=== PATIENT | male | born 1985 | race Caucasian/White ===

== ENCOUNTER → 2017-02-01 | Outpatient (REF) | payer MEDICAID ==
[~2017-02-01] MED LIST: /ALEN70TA; /ALEN70TA OR; /BACL20TA; /BACL20TA OR; ACET50TA PO; ACET650S RE; ACET65TA AD; ACET65TA OR; AMBI5TAB; AMOX250C3 OR; BISA10SU2; BISA10SU2 RE; BISA5TA PR; CETI10TA PO; CIPR750T2 OR; CLON0.5T OR; DETR4CAP; DETR4CAP OR; E; FOSA70TA PO; GLYCERIN ADULT SUPP PR; KLON0.5T; KLON0.5T OR; LACT10SO8; LACT10SO8 OR; LEVO750T PO; LIDOCAINE JELLY TOP; MAALSUS OR; MINOCYCLINE; MINOCYCLINE PO; MIRALEX; MIRALEX PO; NEUR100C OR; OMEP20TA7 OR; PARAFON FORTE PO; PRIL20CA; PRIL20CA OR; SODI-399; TETR250C; TETR250C OR; ZANA4CAP OR; [UNRECOGNIZED DRUG - OTHER]; [UNRECOGNIZED DRUG - OTHER]; [UNRECOGNIZED DRUG - OTHER] TOP; [UNRECOGNIZED DRUG - OTHER] TOP; bacid PO; mycostatin powder
== END ==
LOC: M SMT 16:53
PROVIDERS: ATTEND Nurse Practitioner Women's Health
DX: N31.9 Neuromuscular dysfunction of bladder, unspecified (principal)

== ENCOUNTER 2017-02-17 12:28 | Emergency (ER) | payer MEDICAID ==
[~2017-02-17] VITALS: Ht 182.9 cm; Wt 86.2 kg
[2017-02-17] MEDS ORDERED: BENA25CA4 PO (12:43)
[2017-02-17] MEDS ORDERED: ROPI1TAB PO (12:43)
[2017-02-17 13:24] LABS: ANION GAP 8 MEQ/L (8-16); BLOOD UREA NITROGEN 10 MG/DL (7-18); CARBON DIOXIDE LEVEL 26 MEQ/L (21-32); CHLORIDE LEVEL 107 MEQ/L (98-107); CREATININE FOR GFR 0.68 MG/DL (0.70-1.30); GLOMERULAR FILTRATION RATE > 60.0 (>60); GLUCOSE, FASTING 95 MG/DL (70-105); POTASSIUM SERUM 4.2 MEQ/L (3.5-5.1); SODIUM LEVEL 141 MEQ/L (136-145)
[2017-02-17 13:25] LABS: BASO % 0.4 % (0.0-1.0); EOS # 0.3 K/mm3 (0.0-0.50); EOS % 4.6 % (0.0-3.0); LARGE UNSTAINED CELL # 0.1 K/mm3 (0.0-0.4); LARGE UNSTAINED CELL % 1.4 % (0.0-4.0); LYMPH # 1.6 K/mm3 (1.5-4.5); MEAN CORPUSCULAR HGB CONC 35.2 g/dl (32.0-36.5); MEAN CORPUSCULAR VOLUME 88.2 fl (80.0-96.0); MONO # 0.3 K/mm3 (0.0-0.8); MONO % 4.8 % (0.0-5.0); NEUTROPHILS # 4.7 K/mm3 (1.8-7.7); NEUTROPHILS % 66.9 % (36.0-66.0); PLATELET COUNT, AUTOMATED 202 k/mm3 (150-450); RED CELL DISTRIBUTION WIDTH 12.7 % (11.5-14.5); WHITE BLOOD COUNT 7.1 K/mm3 (4.0-10.0)
[2017-02-17 15:00] VITALS: BP 118/61
--- NOTE | 2017-02-19 06:30 | ECGEPIP ---
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 RBBB Electronically Signed On 02-19-2017 6:30:30 EDT by Dave Jama
== END 2017-02-17 15:20 | disposition home or self-care (01) ==
LOC: EDBD 12:28 → M ED 13:20
DX: R55 Syncope and collapse (principal); T45.0X5A Adverse effect of antiallergic and antiemetic drugs, initial encounter; G82.20 Paraplegia, unspecified; Z98.1 Arthrodesis status; Z87.828 Personal history of other (healed) physical injury and trauma; Z88.5 Allergy status to narcotic agent; Z88.1 Allergy status to other antibiotic agents; Z88.2 Allergy status to sulfonamides; Z91.040 Latex allergy status; Z79.899 Other long term (current) drug therapy

== ENCOUNTER → 2017-09-25 | Outpatient (REF) | payer MEDICAID | LOC: M SMT 13:17 | DX: R82.90 Unspecified abnormal findings in urine (principal) ==

== ENCOUNTER → 2017-10-29 | Outpatient (REF) | payer MEDICAID | LOC: M SMT 17:45 | DX: N31.9 Neuromuscular dysfunction of bladder, unspecified (principal) ==

== ENCOUNTER → 2017-12-04 | Outpatient (REF) | payer MEDICAID | LOC: M SMT 16:57 | DX: N31.9 Neuromuscular dysfunction of bladder, unspecified (principal) | CPT/HCPCS: 87186 ==

== ENCOUNTER → 2018-01-10 | Outpatient (CLI) | payer MEDICAID | LOC: M SMT 15:21 | DX: N31.9 Neuromuscular dysfunction of bladder, unspecified (principal); N39.0 Urinary tract infection, site not specified | CPT/HCPCS: 87186 ==

== ENCOUNTER → 2018-04-11 | Outpatient (REF) | payer MEDICAID | LOC: M SMT 17:05 | DX: N31.9 Neuromuscular dysfunction of bladder, unspecified (principal) ==

== ENCOUNTER → 2018-05-09 | Outpatient (CLI) | payer MEDICAID ==
[2018-05-09 13:37] LABS: ANION GAP 7 MEQ/L (8-16); BLOOD UREA NITROGEN 10 MG/DL (7-18); CALCIUM LEVEL 8.6 MG/DL (8.5-10.1); CARBON DIOXIDE LEVEL 29 MEQ/L (21-32); CHLORIDE LEVEL 109 MEQ/L (98-107); CREATININE FOR GFR 0.74 MG/DL (0.70-1.30); GLOMERULAR FILTRATION RATE > 60.0 (>60); GLUCOSE, FASTING 115 MG/DL (70-100); LDH LACTATE DEHYDROGENASE 115 U/L (87-241); POTASSIUM SERUM 4.1 MEQ/L (3.5-5.1); SODIUM LEVEL 145 MEQ/L (136-145)
[2018-05-09 13:41] LABS: BASO % 0.5 % (0.0-1.0); EOS # 0.3 10^3/uL (0.0-0.50); HEMATOCRIT 38.5 % (42.0-52.0); HEMOGLOBIN 13.1 g/dl (13.5-17.5); IMMATURE GRANULOCYTE % 0.2 % (0-3.0); LYMPH # 1.4 10^3/uL (1.5-4.5); LYMPH % 25.2 % (24.0-44.0); MEAN CORPUSCULAR HEMOGLOBIN 30.3 pg (27.0-33.0); MEAN CORPUSCULAR VOLUME 88.9 fl (80.0-96.0); MONO # 0.3 10^3/uL (0.0-0.8); MONO % 5.4 % (0.0-5.0); NEUTROPHILS # 3.6 10^3/uL (1.8-7.7); NEUTROPHILS % 63.7 % (36.0-66.0); PLATELET COUNT, AUTOMATED 227 10^3/uL (150-450); RED BLOOD COUNT 4.33 10^6/uL (4.30-6.10); RED CELL DISTRIBUTION WIDTH 12.2 % (11.5-14.5); WHITE BLOOD COUNT 5.6 10^3/uL (4.0-10.0)
== END ==
LOC: M SMT 10:04
DX: N39.0 Urinary tract infection, site not specified (principal)

== ENCOUNTER → 2018-05-09 | Outpatient (REF) | payer MEDICAID ==
[2018-05-09 13:59] LABS: APPEARANCE, URINE HAZY (CLEAR); BACTERIA, URINE AUTO 1+ (NEGATIVE); BILIRUBIN, URINE AUTO NEGATIVE (NEGATIVE); BLOOD, URINE BLOOD 1+ (NEGATIVE); COLOR, URINE YELLOW (YELLOW); GLUCOSE, URINE (UA) AUTO NEGATIVE (NEGATIVE); KETONE, URINE AUTO NEGATIVE (NEGATIVE); LEUKOCYTE ESTERASE, URINE AUTO 3+ (NEGATIVE); NITRITE, URINE AUTO POSITIVE (NEGATIVE); PROTEIN, URINE AUTO NEGATIVE (NEGATIVE); RBC, URINE AUTO 2 /HPF (0-3); SPECIFIC GRAVITY URINE AUTO 1.008 (1.002-1.035); SQUAMOUS EPITHELIAL CELL UR AU 0 /HPF (0-6); TRIPLE PHOSPHATE CRYSTALS SMALL; UROBILINOGEN, URINE AUTO 0.2 mg/dL (0.0-2.0); WBC, URINE AUTO 12 /HPF (0-3)
== END ==
LOC: M SMT 12:58
DX: N39.0 Urinary tract infection, site not specified (principal)

== ENCOUNTER → 2018-06-02 | Outpatient (CLI) | payer MEDICAID ==
[~2018-06-02] MED LIST changes: -/ALEN70TA; -/ALEN70TA OR; -/BACL20TA; -/BACL20TA OR; -ACET50TA PO; -ACET650S RE; -ACET65TA AD; -ACET65TA OR; -AMBI5TAB; -AMOX250C3 OR; -BISA10SU2; -BISA10SU2 RE; -BISA5TA PR; -CETI10TA PO; -CIPR750T2 OR; -CLON0.5T OR; -DETR4CAP; -DETR4CAP OR; -E; -FOSA70TA PO; -GLYCERIN ADULT SUPP PR; +ISOVUE-370 76% 100ML VIAL (Q9967) As Ordered; -KLON0.5T; -KLON0.5T OR; -LACT10SO8; -LACT10SO8 OR; -LEVO750T PO; -LIDOCAINE JELLY TOP; -MAALSUS OR; -MINOCYCLINE; -MINOCYCLINE PO; -MIRALEX; -MIRALEX PO; -NEUR100C OR; -OMEP20TA7 OR; -PARAFON FORTE PO; -PRIL20CA; -PRIL20CA OR; -SODI-399; -TETR250C; -TETR250C OR; -ZANA4CAP OR; -[UNRECOGNIZED DRUG - OTHER]; -[UNRECOGNIZED DRUG - OTHER]; -[UNRECOGNIZED DRUG - OTHER] TOP; -[UNRECOGNIZED DRUG - OTHER] TOP; -bacid PO; -mycostatin powder
== END ==
LOC: M RAD 15:35
DX: N39.0 Urinary tract infection, site not specified (principal)
CPT/HCPCS: Q9967

== ENCOUNTER → 2018-06-16 | Outpatient (REF) | payer MEDICAID | LOC: M SFHCPLAZ 12:02 | DX: N20.0 Calculus of kidney (principal) ==

== ENCOUNTER → 2019-04-22 | Outpatient (REF) | payer MEDICARE ==
[~2019-04-22] MED LIST changes: +/ALEN70TA; +/ALEN70TA OR; +ACET650S RE; +ACET65TA AD; +ACET65TA OR; +AMBI5TAB; +AMOX250C3 OR; +BACL1TAB9; +BACL1TAB9 OR; +BENA25CA4 PO; +BISA10SU2; +BISA10SU2 RE; +BISA5TA PR; +CETI10TA PO; +CIPR750T2 OR; +CLON0.5T OR; +DETR4CAP; +DETR4CAP OR; +E; +FOSA70TA PO; +GLYCERIN ADULT SUPP PR; -ISOVUE-370 76% 100ML VIAL (Q9967) As Ordered; +KLON0.5T; +KLON0.5T OR; +LACT10SO8; +LACT10SO8 OR; +LEVO750T PO; +LIDOCAINE JELLY TOP; +MAALSUS OR; +MAPA500T17 PO; +MINOCYCLINE; +MINOCYCLINE PO; +MIRALEX; +MIRALEX PO; +NEUR100C OR; +OMEP20TA7 OR; +PARAFON FORTE PO; +PRIL20CA; +PRIL20CA OR; +ROPI1TAB PO; +SODI-399; +TETR250C; +TETR250C OR; +ZANA4CAP OR; +[UNRECOGNIZED DRUG - OTHER]; +[UNRECOGNIZED DRUG - OTHER]; +[UNRECOGNIZED DRUG - OTHER] TOP; +[UNRECOGNIZED DRUG - OTHER] TOP; +bacid PO; +mycostatin powder
[2019-04-22 18:57] LABS: APPEARANCE, URINE CLOUDY (CLEAR); BACTERIA, URINE AUTO 3+ (NEGATIVE); BILIRUBIN, URINE AUTO NEGATIVE (NEGATIVE); BLOOD, URINE BLOOD 3+ (NEGATIVE); COLOR, URINE AMBER (YELLOW); GLUCOSE, URINE (UA) AUTO NEGATIVE (NEGATIVE); KETONE, URINE AUTO NEGATIVE (NEGATIVE); LEUKOCYTE ESTERASE, URINE AUTO 3+ (NEGATIVE); NITRITE, URINE AUTO POSITIVE (NEGATIVE); PROTEIN, URINE AUTO 1+ mg/dL (NEGATIVE); RBC, URINE AUTO TNTC /HPF (0-3); SPECIFIC GRAVITY URINE AUTO 1.021 (1.002-1.035); SQUAMOUS EPITHELIAL CELL UR AU 0 /HPF (0-6); UROBILINOGEN, URINE AUTO 0.2 mg/dL (0.0-2.0); WBC, URINE AUTO TNTC /HPF (0-3)
== END ==
LOC: M SMT 17:09
PROVIDERS: ATTEND Nurse Practitioner Family
DX: R31.9 Hematuria, unspecified (principal)

== ENCOUNTER → 2019-05-28 | Outpatient (REF) | payer MEDICARE ==
[~2019-05-28] MED LIST changes: +BACL1TAB9 PO; +BISA10SU27 PR; +CEPH500T PO; +CIPR-249 PO; +CLIN1LOT TOP; +CLON0.5T2 PO; +DETR4CAP PO; +DIPH25CA32 PO; +ERYTGEL TOP; +GABA-843 PO; +KLON0.5T PO; +LACT10SO3 PO; +LEVA1TAB2 PO; +MINO100C4 PO; +MIRA3350 PO; +NEUR300C PO
[2019-05-28 18:07] LABS: APPEARANCE, URINE CLEAR (CLEAR); BACTERIA, URINE AUTO NEGATIVE (NEGATIVE); BILIRUBIN, URINE AUTO NEGATIVE (NEGATIVE); BLOOD, URINE BLOOD NEGATIVE (NEGATIVE); COLOR, URINE STRAW (YELLOW); GLUCOSE, URINE (UA) AUTO NEGATIVE (NEGATIVE); KETONE, URINE AUTO NEGATIVE (NEGATIVE); LEUKOCYTE ESTERASE, URINE AUTO 1+ (NEGATIVE); MUCUS, URINE SMALL (NEGATIVE); NITRITE, URINE AUTO NEGATIVE (NEGATIVE); PROTEIN, URINE AUTO NEGATIVE (NEGATIVE); RBC, URINE AUTO 1 /HPF (0-3); SPECIFIC GRAVITY URINE AUTO 1.003 (1.002-1.035); SQUAMOUS EPITHELIAL CELL UR AU 0 /HPF (0-6); UROBILINOGEN, URINE AUTO 0.2 mg/dL (0.0-2.0); WBC, URINE AUTO 1 /HPF (0-3)
== END ==
LOC: M SMT 17:09
PROVIDERS: ATTEND Nurse Practitioner Family
DX: N39.0 Urinary tract infection, site not specified (principal)

== ENCOUNTER 2019-05-30 16:57 | Observation (INO) | payer MEDICARE ==
[~2019-05-30] VITALS: Ht 182.9 cm; Wt 82.4 kg
[~2019-05-30 16:57] MED LIST changes: -BACL1TAB9 PO; -BISA10SU27 PR; -CEPH500T PO; -CIPR-249 PO; -CLIN1LOT TOP; -CLON0.5T2 PO; -DETR4CAP PO; -DIPH25CA32 PO; -ERYTGEL TOP; -GABA-843 PO; -KLON0.5T PO; -LACT10SO3 PO; -LEVA1TAB2 PO; -MINO100C4 PO; -MIRA3350 PO; -NEUR300C PO
[2019-05-30] MEDS ORDERED: IBUPROFEN 600 MG TAB PO ONE (17:15)
[2019-05-30] MEDS ORDERED: NS 1,000 ML IV ONE ×2 (18:00→22:15)
[2019-05-30 19:05] LABS: BASO % 0.1 % (0.0-1.0); EOS # 0.1 10^3/uL (0.0-0.5); EOS % 0.6 % (0.0-3.0); HEMATOCRIT 38.8 % (42.0-52.0); HEMOGLOBIN 13.4 g/dl (13.5-17.5); LYMPH # 0.4 10^3/uL (1.5-5.0); LYMPH % 3.4 % (24.0-44.0); MEAN CORPUSCULAR HEMOGLOBIN 31.3 pg (27.0-33.0); MEAN CORPUSCULAR HGB CONC 34.5 g/dl (32.0-36.5); MEAN CORPUSCULAR VOLUME 90.7 fl (80.0-96.0); MONO # 0.2 10^3/uL (0.0-0.8); MONO % 2.3 % (0.0-5.0); NEUTROPHILS # 9.6 10^3/uL (1.5-8.5); NEUTROPHILS % 93.1 % (36.0-66.0); PLATELET COUNT, AUTOMATED 163 10^3/uL (150-450); RED BLOOD COUNT 4.28 10^6/uL (4.30-6.10); WHITE BLOOD COUNT 10.3 10^3/uL (4.0-10.0)
[2019-05-30] MEDS ORDERED: ACETAMINOPHEN 325 MG TAB PO ONE (19:15)
[2019-05-30 19:19] LABS: ALBUMIN 3.2 GM/DL (3.2-5.2); ALT/SGPT 27 U/L (12-78); BILIRUBIN,DIRECT 0.1 MG/DL (0.0-0.2); BILIRUBIN,TOTAL 0.6 MG/DL (0.2-1.0); BLOOD UREA NITROGEN 10 MG/DL (7-18); CALCIUM LEVEL 8.6 MG/DL (8.5-10.1); CARBON DIOXIDE LEVEL 25 MEQ/L (21-32); CHLORIDE LEVEL 106 MEQ/L (98-107); CREATININE FOR GFR 0.73 MG/DL (0.70-1.30); GLOMERULAR FILTRATION RATE > 60.0 (>60); GLUCOSE, FASTING 95 MG/DL (70-100); POTASSIUM SERUM 4.1 MEQ/L (3.5-5.1); SODIUM LEVEL 139 MEQ/L (136-145); TOTAL PROTEIN 6.4 GM/DL (6.4-8.2)
[2019-05-30] MEDS ORDERED: cefTAZidime 1 GM in D5W MINI-BAG PLUS 50 ML IV ONE (19:30)
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
[2019-05-30] MEDS ORDERED: IBUPROFEN 400 MG TAB PO PRN (20:45)
[2019-05-30] MEDS ORDERED: CLIN1LOT TOP (20:59)
[2019-05-30] MEDS ORDERED: MIRA3350 PO (20:59)
[2019-05-30] MEDS ORDERED: BISA10SU27 PR (20:59)
[2019-05-30] MEDS ORDERED: LACT10SO3 PO (20:59)
[2019-05-30] MEDS ORDERED: CLON0.5T8 PO (20:59)
[2019-05-30] MEDS ORDERED: ERYTGEL TOP (20:59)
[2019-05-30] MEDS ORDERED: CEPH500T PO (20:59)
[2019-05-30] MEDS ORDERED: BACL1TAB9 PO (20:59)
[2019-05-30] MEDS ORDERED: MINO100C4 PO (20:59)
[2019-05-30] MEDS ORDERED: GABA-843 PO (20:59)
[2019-05-30] MEDS: GABAPENTIN 300 MG CAP PO SCH (21:00)
[2019-05-30] MEDS: BACLOFEN 10 MG TAB PO SCH (21:00)
[2019-05-30] MEDS: BISACODYL 10 MG SUPP PR SCH (21:00)
[2019-05-30] MEDS: NS 1,000 ML IV SCH (21:35)
[2019-05-30 22:26] VITALS: BP 84/50
[2019-05-30] MEDS: ACETAMINOPHEN 650MG ER TAB (TYLENOL ARTHRITIS) PO SCH (22:36)
[2019-05-30] MEDS ORDERED: MIRALAX *UNIT DOSE* 17GM PACKET PO PRN (23:15)
[2019-05-30] MEDS ORDERED: LACTULOSE 20 GM/30 ML SYRUP UD PO PRN (23:15)
[2019-05-30 23:59] VITALS: BP 97/56
[2019-05-31] MEDS: rOPINIRole 1MG TAB PO SCH ×4 (00:14→20:35)
[2019-05-31] MEDS: clonazePAM 0.5 MG TAB PO SCH ×3 (00:15→20:35)
[2019-05-31] MEDS ORDERED: cefTAZidime 1 GM in D5W MINI-BAG PLUS 50 ML IV SCH (03:00)
[2019-05-31] MEDS: cefTAZidime 1 GM in D5W MINI-BAG PLUS 50 ML IV SCH ×3 (03:36→18:14)
[2019-05-31 04:00] VITALS: BP 107/65
[2019-05-31 08:00] VITALS: BP 93/67
[2019-05-31 08:02] LABS: HEMATOCRIT 36.5 % (42.0-52.0); HEMOGLOBIN 12.4 g/dl (13.5-17.5); MEAN CORPUSCULAR HEMOGLOBIN 30.6 pg (27.0-33.0); MEAN CORPUSCULAR VOLUME 90.1 fl (80.0-96.0); PLATELET COUNT, AUTOMATED 142 10^3/uL (150-450); RED BLOOD COUNT 4.05 10^6/uL (4.30-6.10); WHITE BLOOD COUNT 15.4 10^3/uL (4.0-10.0)
[2019-05-31 08:27] LABS: BLOOD UREA NITROGEN 7 MG/DL (7-18); CALCIUM LEVEL 8.1 MG/DL (8.5-10.1); CARBON DIOXIDE LEVEL 24 MEQ/L (21-32); CHLORIDE LEVEL 112 MEQ/L (98-107); CREATININE FOR GFR 0.58 MG/DL (0.70-1.30); GLOMERULAR FILTRATION RATE > 60.0 (>60); GLUCOSE, FASTING 93 MG/DL (70-100); POTASSIUM SERUM 3.5 MEQ/L (3.5-5.1); SODIUM LEVEL 145 MEQ/L (136-145)
[2019-05-31] MEDS ORDERED: ENOXAPARIN 40 MG/0.4 ML SYRINGE (J1650) SC SCH (09:00)
[2019-05-31] MEDS: ACETAMINOPHEN 650MG ER TAB (TYLENOL ARTHRITIS) PO SCH ×2 (09:20→20:35)
[2019-05-31] MEDS: GABAPENTIN 300 MG CAP PO SCH ×3 (09:21→22:06)
[2019-05-31] MEDS: BACLOFEN 10 MG TAB PO SCH ×4 (09:21→22:06)
[2019-05-31] MEDS ORDERED: SLF 3 ML SYR IV PRN (10:45)
[2019-05-31 12:00] VITALS: BP 117/66
[2019-05-31] MEDS: SLF 3 ML SYR IV SCH ×2 (14:03→22:06)
--- NOTE | 2019-05-31 15:51 | IPNPDOC ---
Text Note Date of Service The patient was seen on 05/31/19. NOTE Patient remains medically stable. Patient cannot distinguish whether he feels hot or cold. He does not exhibit diaphoresis. Patient is admitted with urinary traction infection and associated sepsis. The patient has quadriplegia. Objective: General: Is warm to touch, but is not clammy or diaphoretic. HENT: Neck is supple to passive motion. Oral mucosa is moist, no adenopathy. Cardiovascular: Regular rate and rhythm with a normal S1 and S2. Respiratory: Generally clear to auscultation. Abdomen: Soft, flat, nontender. Extremities: Patient does have some flexion contracture to his upper extremities, Lower extremities are extended. Pedal pulses are palpable. Neuro: Patient at times exhibit spasm in response to tactile stimulation Sepsis: Patient has a MAXIMUM TEMPERATURE of 99. He has not exhibited tachycardia. He has had mild hypotension at 93/67. Lactic acid was mildly elevated at 2.2, but has normalized to 0.7. Patient remains on empiric antibiotics in the form of ceftazidime. Source is suspected to be urine. Patient has chronic indwelling Leija for neurogenic bladder. Blood and urine culture results are pending. Quadriplegia. Patient remains on medications as needed for spasm and pain. VS,Fishbone, I+O VS, Fishbone, I+O Laboratory Tests 05/30/19 18:29 Red Blood Count 4.28 L, Mean Corpuscular Volume 90.7, Mean Corpuscular Hemoglobin 31.3, Mean Corpuscular Hemoglobin Concent 34.5, Red Cell Distribution Width 12.4, Neutrophils (%) (Auto) 93.1 H, Lymphocytes (%) (Auto) 3.4 L, Monocytes (%) (Auto) 2.3, Eosinophils (%) (Auto) 0.6, Basophils (%) (Auto) 0.1, Neutrophils # (Auto) 9.6 H, Lymphocytes # (Auto) 0.4 L, Monocytes # (Auto) 0.2, Eosinophils # (Auto) 0.1, Basophils # (Auto) 0.0 05/31/19 07:37 Red Blood Count 4.05 L, Mean Corpuscular Volume 90.1, Mean Corpuscular Hemoglobin 30.6, Mean Corpuscular Hemoglobin Concent 34.0, Red Cell Distribution Width 12.4, Calcium Level 8.1 L Vital Signs Date Time Temp Pulse Resp B/P (MAP) Pulse Ox O2 Delivery O2 Flow Rate FiO2 05/31/19 12:00 98.6 84 20 117/66 (83) 99 05/30/19 21:37 Room Air I&O- Last 24 Hours up to 6 AM 05/31/19 06:00 Intake Total 2660 ml Output Total 2200 ml Balance 460 ml LUIGI RODRIGUEZ MD May 31, 2019 15:51
[2019-05-31 16:00] VITALS: BP 108/62
[2019-05-31] MEDS: NS 1,000 ML IV SCH (16:12)
[2019-05-31 20:00] VITALS: BP 102/64
[2019-05-31] MEDS: BISACODYL 10 MG SUPP PR SCH (20:25)
[2019-06-01] VITALS: BP 92/50
[2019-06-01] MEDS: cefTAZidime 1 GM in D5W MINI-BAG PLUS 50 ML IV SCH ×2 (03:54→10:51)
[2019-06-01] MEDS: BACLOFEN 10 MG TAB PO SCH ×2 (03:55→09:12)
[2019-06-01] MEDS: GABAPENTIN 300 MG CAP PO SCH ×2 (03:55→09:12)
[2019-06-01 04:00] VITALS: BP 110/86
[2019-06-01] MEDS: SLF 3 ML SYR IV SCH (05:29)
[2019-06-01] MEDS: NS 1,000 ML IV SCH (05:32)
[2019-06-01 05:39] LABS: BASO % 0.2 % (0.0-1.0); EOS # 0.3 10^3/uL (0.0-0.5); EOS % 3.2 % (0.0-3.0); HEMATOCRIT 34.9 % (42.0-52.0); HEMOGLOBIN 11.8 g/dl (13.5-17.5); LYMPH # 1.3 10^3/uL (1.5-5.0); LYMPH % 15.5 % (24.0-44.0); MEAN CORPUSCULAR HGB CONC 33.8 g/dl (32.0-36.5); MEAN CORPUSCULAR VOLUME 88.8 fl (80.0-96.0); MONO # 0.5 10^3/uL (0.0-0.8); MONO % 5.4 % (0.0-5.0); NEUTROPHILS # 6.4 10^3/uL (1.5-8.5); NEUTROPHILS % 75.2 % (36.0-66.0); PLATELET COUNT, AUTOMATED 157 10^3/uL (150-450); RED BLOOD COUNT 3.93 10^6/uL (4.30-6.10); WHITE BLOOD COUNT 8.5 10^3/uL (4.0-10.0)
[2019-06-01 05:58] LABS: BLOOD UREA NITROGEN 6 MG/DL (7-18); CALCIUM LEVEL 8.6 MG/DL (8.5-10.1); CARBON DIOXIDE LEVEL 22 MEQ/L (21-32); CHLORIDE LEVEL 113 MEQ/L (98-107); CREATININE FOR GFR 0.56 MG/DL (0.70-1.30); GLOMERULAR FILTRATION RATE > 60.0 (>60); GLUCOSE, FASTING 88 MG/DL (70-100); POTASSIUM SERUM 3.3 MEQ/L (3.5-5.1); SODIUM LEVEL 144 MEQ/L (136-145)
[2019-06-01 08:00] VITALS: BP 124/75
[2019-06-01] MEDS ORDERED: POTASSIUM CHLORIDE 10 MEQ SR TABLET PO ONE (09:00)
[2019-06-01] MEDS: ACETAMINOPHEN 650MG ER TAB (TYLENOL ARTHRITIS) PO SCH (09:11)
[2019-06-01] MEDS: clonazePAM 0.5 MG TAB PO SCH (09:11)
[2019-06-01] MEDS: rOPINIRole 1MG TAB PO SCH (09:11)
[2019-06-01] MEDS ORDERED: LevoFLOXacin 500 MG TABLET PO SCH (11:30)
[2019-06-01 12:00] VITALS: BP 122/73
[2019-06-01] MEDS ORDERED: LEVA1TAB2 PO (12:05)
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
== END 2019-06-01 13:47 | disposition home or self-care (01) ==
LOC: M ED 16:57 → EDBD 16:57 → M ED INP 16:58 → M PCU 21:56
PROVIDERS: ADMIT Internal Medicine; ATTEND Internal Medicine
DX: N39.0 Urinary tract infection, site not specified (principal); A41.89 Other specified sepsis; B96.5 Pseudomonas (aeruginosa) (mallei) (pseudomallei) as the cause of diseases classified elsewhere; G82.50 Quadriplegia, unspecified; N31.9 Neuromuscular dysfunction of bladder, unspecified; R33.9 Retention of urine, unspecified; Z95.828 Presence of other vascular implants and grafts; Z79.899 Other long term (current) drug therapy; Z88.2 Allergy status to sulfonamides; Z88.5 Allergy status to narcotic agent
CPT/HCPCS: 36415; 80048; 80076; 81001; 83605; 85025; 85027; 87040; 87088; 87186; 96361; 96365; 96366; 96376; 99284; G0378; J0713

== ENCOUNTER → 2019-07-27 | Outpatient (REF) | payer MEDICARE, MEDICAID ==
[~2019-07-27] MED LIST changes: +BACL1TAB9 PO; +BISA10SU27 PR; +CEPH500T PO; +CIPR-249 PO; +CLIN1LOT TOP; +CLON0.5T8 PO; +DETR4CAP PO; +DIPH25CA32 PO; +ERYTGEL TOP; +GABA-843 PO; +KLON0.5T PO; +LACT10SO3 PO; +LEVA1TAB2 PO; +MINO100C4 PO; +MIRA3350 PO; +NEUR300C PO
== END ==
LOC: M SMT 17:42
PROVIDERS: ATTEND Urology
DX: Z01.818 Encounter for other preprocedural examination (principal); R33.9 Retention of urine, unspecified; N31.9 Neuromuscular dysfunction of bladder, unspecified; N39.0 Urinary tract infection, site not specified

== ENCOUNTER → 2019-07-30 | Outpatient (REF) | payer MEDICARE, MEDICAID ==
[2019-07-30 12:36] LABS: PROTHROMBIN TIME 12.9 SECONDS (11.8-14.0)
[2019-07-30 12:37] LABS: PARTIAL THROMBOPLASTIN TIME 29.5 SECONDS (25.0-38.4)
== END ==
LOC: M LAB REF 12:14
PROVIDERS: ATTEND Internal Medicine
DX: Z01.810 Encounter for preprocedural cardiovascular examination (principal); Z79.01 Long term (current) use of anticoagulants

== ENCOUNTER 2019-08-03 12:59 | Day surgery (SDC) | payer MEDICARE, MEDICAID ==
[~2019-08-03] VITALS: Ht 180.3 cm; Wt 79.8 kg
[~2019-08-03 12:59] MED LIST changes: -CIPR-249 PO; +LIDOCAINE 1% MDV 20ML VIAL SQ PRN; +LR 1,000 ML IV ONE; +PIPERACILLIN/TAZOBACTAM SOD 3.375 GM in D5W MINI-BAG PLUS 50 ML IV ONE
[2019-08-03] MEDS ORDERED: CIPR-249 PO (13:35)
[2019-08-03] MEDS ORDERED: dexameTHASONE 4 MG/ML 1ML VIAL (J1100) As Ordered ONE (15:31)
[2019-08-03] MEDS ORDERED: ONDANSETRON 4MG/2ML VIAL (J2405) As Ordered ONE (15:31)
[2019-08-03] MEDS ORDERED: PROPOFOL 200 MG/20 ML VIAL As Ordered ONE (15:31)
[2019-08-03] MEDS ORDERED: ROCURONIUM BROMIDE 50 MG/5 ML VIAL As Ordered ONE (15:31)
[2019-08-03] MEDS ORDERED: LIDOCAINE 2% INJ 100 MG/5 ML SDV (FOR ANES.) As Ordered ONE (15:31)
[2019-08-03] MEDS ORDERED: MIDAZOLAM INJ 2 MG/2 ML VIAL (J2250) As Ordered ONE (16:26)
[2019-08-03] MEDS ORDERED: fentaNYL 250 MCG/5 ML INJECTION (J3010) As Ordered ONE (16:26)
[2019-08-03] MEDS ORDERED: LIDOCAINE 1% SDV INJ 30 ML VIAL As Ordered ONE (16:31)
[2019-08-03] MEDS ORDERED: BUPIVACAINE HCL 0.25% 30 ML VIAL As Ordered ONE (16:31)
[2019-08-03] MEDS ORDERED: ePHEDrine SULFATE 25 MG/5 ML(5MG/ML) SYRINGE As Ordered ONE (17:16)
[2019-08-03] MEDS ORDERED: GLYCOPYRROLATE INJ 0.2 MG/ML 2 ML VIAL As Ordered ONE (17:16)
[2019-08-03] MEDS ORDERED: SUGAMMADEX SODIUM 500 MG/5 ML VIAL (BRIDION) As Ordered ONE (17:25)
[2019-08-03] MEDS ORDERED: fentaNYL 100 MCG/2 ML INJECTION (J3010) As Ordered ONE (18:38)
[2019-08-03] MEDS: fentaNYL 100 MCG/2 ML INJECTION (J3010) IV PRN ×4 (18:40→18:57)
[2019-08-03] MEDS ORDERED: LR 1,000 ML IV SCH (19:00)
[2019-08-03] MEDS ORDERED: ONDANSETRON 4MG/2ML VIAL (J2405) IV PRN (19:00)
[2019-08-03] MEDS ORDERED: PERCOCET 5MG/325MG TAB PO PRN ×2 (19:00)
--- NOTE | 2019-08-03 19:03 | ROOPDOC ---
[facility] Report Of Operation Report of Operation DATE OF PROCEDURE: 08/03/19 PREPROCEDURE DIAGNOSIS: Urinary Retention. POSTPROCEDURE DIAGNOSIS: Urinary Retention. PROCEDURE: Open cystotomy with suprapubic catheter placement. SURGEON: Helder Arizmendi MD BLOOD BANK LABORATORY TECHNOLOGIST: None. ANESTHESIA: General. OPERATIVE INDICATIONS: This is a 34-year-old male with urinary retention managed with a chronic indwelling catheter. He was brought to the operating room today for the above procedure. DESCRIPTION OF PROCEDURE: The patient was brought to the operating room and spinal anesthesia was administered. Prophylactic antibiotics were infused. He was placed in the supine position and prepped and draped in the usual sterile fashion. At this point, an 18Fr Leija catheter was inserted in the urethra and advanced into the bladder. The balloon was filled with 10mL of sterile water and the catheter was clamped off. At this point, an approximately 5-6 cm suprapubic incision was made. We then dissected down through the subcutaneous tissues. The rectus fascia was then opened using electrocautery and then the bellies of the rectus muscle were bluntly spread. At this point, the bladder was then filled with normal saline using the urethral catheter. At this point, we dissected down to the bladder. The bladder was then palpated and then a syringe was utilized to aspirate what appeared to be the bladder. And at this point, clear fluid did aspirate into the syringe. This confirmed we were indeed staring at the bladder. I then used a #3-[address] a pursestring stitch through the dome of the bladder. At this point, a cystotomy was then made in the middle of the pursestring stitch and then clear fluid drained out. I then inserted a #20-Vietnamese catheter into the cystostomy and the balloon was filled with 7 mL of sterile water. The pursestring stitch was then tied down around the #20-Vietnamese catheter. Once this was done, I then irrigated the pelvis around the bladder several times and then suctioned out the fluid. We then closed the rectus fascia with interrupted #1 non-looped PDS sutures in a [id number] fashion. Once the fascia was closed, the subcutaneous tissues were reapproximated using interrupted #3-0 Vicryl suture. The skin was then closed around the suprapubic catheter using a running #4-0 Monocryl subcuticular suture. The suprapubic catheter was then further secured to the skin with a #2-0 Prolene suture. At this point, Dermabond and dressings were applied, and this marked the conclusion of the procedure. The suprapubic catheter was connected to gravity drainage. The patient was then awakened from anesthesia and transported to the recovery room in stable condition. Estimated blood loss: 10 mL. Complications: None. Specimens: None. PLAN: The patient will follow up in clinic in 6 weeks for his first suprapubic catheter change. HELDER ARIZMENDI MD Aug 03, 2019 19:03
[2019-08-03 20:45] VITALS: BP 122/70
== END 2019-08-03 20:55 | disposition home or self-care (01) ==
LOC: M SDC 12:59
PROVIDERS: ATTEND Urology
DX: R33.9 Retention of urine, unspecified (principal); N31.9 Neuromuscular dysfunction of bladder, unspecified; N39.0 Urinary tract infection, site not specified; G90.4 Autonomic dysreflexia; G82.50 Quadriplegia, unspecified; I10 Essential (primary) hypertension; Z79.899 Other long term (current) drug therapy; Z88.1 Allergy status to other antibiotic agents; Z91.040 Latex allergy status; Z88.2 Allergy status to sulfonamides; Z88.0 Allergy status to penicillin; Z88.5 Allergy status to narcotic agent
CPT/HCPCS: 51040; J1100; J2250; J2405; J2543; J3010

== ENCOUNTER → 2020-10-13 | Outpatient (REF) | payer MEDICARE, MEDICAID ==
[~2020-10-13] MED LIST changes: +CIPR-249 PO; +CLON0.5T2 PO; -CLON0.5T8 PO; +GABA-282 PO; -GABA-843 PO; -LIDOCAINE 1% MDV 20ML VIAL SQ PRN; -LR 1,000 ML IV ONE; -PIPERACILLIN/TAZOBACTAM SOD 3.375 GM in D5W MINI-BAG PLUS 50 ML IV ONE; -ROPI1TAB PO; +ROPI1TAB3 PO
[2020-10-13 17:05] LABS: APPEARANCE, URINE HAZY (CLEAR); BACTERIA, URINE AUTO 1+ (NEGATIVE); BILIRUBIN, URINE AUTO NEGATIVE (NEGATIVE); BLOOD, URINE BLOOD 3+ (NEGATIVE); COLOR, URINE YELLOW (YELLOW); GLUCOSE, URINE (UA) AUTO NEGATIVE (NEGATIVE); KETONE, URINE AUTO NEGATIVE (NEGATIVE); LEUKOCYTE ESTERASE, URINE AUTO 3+ (NEGATIVE); NITRITE, URINE AUTO NEGATIVE (NEGATIVE); PROTEIN, URINE AUTO 1+ mg/dL (NEGATIVE); RBC, URINE AUTO 3 /HPF (0-3); SPECIFIC GRAVITY URINE AUTO 1.002 (1.002-1.035); SQUAMOUS EPITHELIAL CELL UR AU 0 /HPF (0-6); UROBILINOGEN, URINE AUTO 0.2 mg/dL (0.0-2.0); WBC, URINE AUTO 21 /HPF (0-3)
== END ==
LOC: M SMT 13:17
PROVIDERS: ATTEND Nurse Practitioner Women's Health
DX: N39.0 Urinary tract infection, site not specified (principal)

== ENCOUNTER → 2020-12-29 | Outpatient (REF) | payer MEDICARE, MEDICAID ==
[2020-12-29 17:49] LABS: APPEARANCE, URINE CLEAR (CLEAR); BACTERIA, URINE AUTO NEGATIVE (NEGATIVE); BILIRUBIN, URINE AUTO NEGATIVE (NEGATIVE); BLOOD, URINE BLOOD NEGATIVE (NEGATIVE); COLOR, URINE COLORLESS (YELLOW); GLUCOSE, URINE (UA) AUTO NEGATIVE (NEGATIVE); KETONE, URINE AUTO NEGATIVE (NEGATIVE); LEUKOCYTE ESTERASE, URINE AUTO TRACE (NEGATIVE); NITRITE, URINE AUTO NEGATIVE (NEGATIVE); PROTEIN, URINE AUTO NEGATIVE (NEGATIVE); RBC, URINE AUTO 0 /HPF (0-3); SPECIFIC GRAVITY URINE AUTO 1.001 (1.002-1.035); SQUAMOUS EPITHELIAL CELL UR AU 0 /HPF (0-6); UROBILINOGEN, URINE AUTO 0.2 mg/dL (0.0-2.0); WBC, URINE AUTO 1 /HPF (0-3)
== END ==
LOC: M SMT 17:08
PROVIDERS: ATTEND Urology
DX: N31.9 Neuromuscular dysfunction of bladder, unspecified (principal)

== ENCOUNTER → 2021-07-12 | Outpatient (REF) | payer MEDICARE, MEDICAID ==
[2021-07-12 18:11] LABS: APPEARANCE, URINE HAZY (CLEAR); BACTERIA, URINE AUTO 1+ (NEGATIVE); BILIRUBIN, URINE AUTO NEGATIVE (NEGATIVE); BLOOD, URINE BLOOD 1+ (NEGATIVE); COLOR, URINE STRAW (YELLOW); GLUCOSE, URINE (UA) AUTO NEGATIVE (NEGATIVE); KETONE, URINE AUTO NEGATIVE (NEGATIVE); LEUKOCYTE ESTERASE, URINE AUTO 3+ (NEGATIVE); MUCUS, URINE SMALL (NEGATIVE); NITRITE, URINE AUTO NEGATIVE (NEGATIVE); PROTEIN, URINE AUTO NEGATIVE (NEGATIVE); RBC, URINE AUTO 3 /HPF (0-3); SPECIFIC GRAVITY URINE AUTO 1.002 (1.002-1.035); SQUAMOUS EPITHELIAL CELL UR AU 0 /HPF (0-6); UROBILINOGEN, URINE AUTO 0.2 mg/dL (0.0-2.0); WBC, URINE AUTO 63 /HPF (0-3)
== END ==
LOC: M SMT 16:45
DX: N39.0 Urinary tract infection, site not specified (principal)

== ENCOUNTER → 2022-11-19 | Outpatient (REF) | payer MEDICARE, MEDICAID ==
[~2022-11-19] MED LIST changes: +DIPH-435 PO; -DIPH25CA32 PO
[2022-11-20 10:57] LABS: PERCENT SATURATION 15.6 % (19.7-50.0)
[2022-11-20 11:04] LABS: FERRITIN 90.9 NG/ML (10.5-307.3)
== END ==
LOC: M LAB REF 10:13
PROVIDERS: ATTEND Internal Medicine
DX: G60.9 Hereditary and idiopathic neuropathy, unspecified (principal)

== ENCOUNTER → 2022-11-23 | Outpatient (REF) | payer MEDICARE, MEDICAID ==
[2022-11-23 17:02] LABS: APPEARANCE, URINE CLOUDY (CLEAR); BACTERIA, URINE AUTO NEGATIVE (NEGATIVE); BILIRUBIN, URINE AUTO NEGATIVE (NEGATIVE); BLOOD, URINE BLOOD 3+ (NEGATIVE); COLOR, URINE AMBER (YELLOW); GLUCOSE, URINE (UA) AUTO NEGATIVE (NEGATIVE); KETONE, URINE AUTO TRACE mg/dL (NEGATIVE); LEUKOCYTE ESTERASE, URINE AUTO 3+ (NEGATIVE); NITRITE, URINE AUTO NEGATIVE (NEGATIVE); PROTEIN, URINE AUTO 2+ mg/dL (NEGATIVE); RBC, URINE AUTO 149 /HPF (0-3); SPECIFIC GRAVITY URINE AUTO 1.024 (1.002-1.035); SQUAMOUS EPITHELIAL CELL UR AU 0 /HPF (0-6); UROBILINOGEN, URINE AUTO 0.2 mg/dL (0.0-2.0); WBC, URINE AUTO TNTC /HPF (0-3)
== END ==
LOC: M LAB REF 16:27
PROVIDERS: ATTEND Internal Medicine
DX: R33.9 Retention of urine, unspecified (principal)

== ENCOUNTER 2024-02-21 06:59 | Inpatient (IN) | payer MEDICARE, MEDICAID ==
[~2024-02-21] VITALS: Ht 182.9 cm; Wt 89.2 kg
[~2024-02-21 06:59] MED LIST changes: +ERYT1GEL5 TOP; -ERYTGEL TOP; -KLON0.5T PO; +KLON0.5T8 PO; -ROPI1TAB3 PO; +ROPI1TAB73 PO
[2024-02-21] MEDS ORDERED: OXYB15TA14 PO (07:09)
[2024-02-21 11:40] VITALS: BP 150/89
[2024-02-21] MEDS: BACLOFEN 10 MG TAB PO ONE (11:44)
[2024-02-21] MEDS: oxyBUTYnin *DITROPAN XL* 5 MG TABCR PO ONE (11:45)
[2024-02-21] MEDS: NS 1,000 ML IV ONE (11:45)
[2024-02-21] MEDS: GABAPENTIN 300 MG CAP PO ONE (11:45)
[2024-02-21] MEDS: clonazePAM 0.5 MG TAB PO ONE (11:45)
[2024-02-21] MEDS ORDERED: MORPHINE 2 MG/ML 1ML VIAL IV PRN ×2 (11:55)
[2024-02-21] MEDS ORDERED: ACETAMINOPHEN TAB 650MG DOSE (2X325MG) PO PRN (11:55)
[2024-02-21 12:16] LABS: BASO % 0.2 % (0.0-1.0); EOS # 0.2 10^3/uL (0.0-0.5); EOS % 2.1 % (0.0-3.0); HEMATOCRIT 43.4 % (42.0-52.0); HEMOGLOBIN 14.5 g/dl (13.5-17.5); LYMPH % 9.5 % (24.0-44.0); MEAN CORPUSCULAR HEMOGLOBIN 30.4 pg (27.0-33.0); MEAN CORPUSCULAR HGB CONC 33.4 g/dl (32.0-36.5); MONO # 0.4 10^3/uL (0.0-0.8); NEUTROPHILS # 8.9 10^3/uL (1.5-8.5); NEUTROPHILS % 83.8 % (36.0-66.0); PLATELET COUNT, AUTOMATED 184 10^3/uL (150-450); RED BLOOD COUNT 4.77 10^6/uL (4.30-6.10); WHITE BLOOD COUNT 10.6 10^3/uL (4.0-10.0)
[2024-02-21 12:28] LABS: INR 1.09; PROTHROMBIN TIME 13.7 SECONDS (12.5-14.5)
[2024-02-21] MEDS: rOPINIRole 1MG TAB PO ONE (12:31)
[2024-02-21 12:42] LABS: BLOOD UREA NITROGEN 18 MG/DL (9-23); CARBON DIOXIDE LEVEL 28 MMOL/L (20-31); CHLORIDE LEVEL 108 MMOL/L (98-107); CREATININE FOR GFR 0.55 MG/DL (0.70-1.30); GLOMERULAR FILTRATION RATE > 60.0 (>60); GLUCOSE, FASTING 99 MG/DL (60-100); POTASSIUM SERUM 4.6 MMOL/L (3.5-5.1); SODIUM LEVEL 141 MMOL/L (136-145)
[2024-02-21 12:44] VITALS: O2SAT 98
[2024-02-21 12:50] VITALS: TEMP 97.7
[2024-02-21] MEDS ORDERED: SILD25TA2 PO (13:14)
[2024-02-21] MEDS ORDERED: HOME MED LIST COMPLETE! XX SCH (13:15)
[2024-02-21] MEDS ORDERED: ASPI-655 PO (14:26)
[2024-02-22] MEDS ORDERED: ENOXAPARIN 40MG/0.4ML SYRINGE (J1650 PER 10MG) SC SCH (09:00)
== END 2024-02-21 15:08 | disposition left against medical advice (07) | DRG 535 ==
LOC: EDBD 06:59 → M ED 06:59 → M ED INP 11:54
PROVIDERS: ADMIT Internal Medicine; ATTEND Internal Medicine
DX: S72.012A Unspecified intracapsular fracture of left femur, initial encounter for closed fracture (principal); G82.50 Quadriplegia, unspecified; N31.9 Neuromuscular dysfunction of bladder, unspecified; Z87.440 Personal history of urinary (tract) infections; R33.9 Retention of urine, unspecified; F41.9 Anxiety disorder, unspecified; G89.29 Other chronic pain; R00.1 Bradycardia, unspecified; Z79.899 Other long term (current) drug therapy; Z99.0 Dependence on aspirator; Z88.1 Allergy status to other antibiotic agents; Z88.2 Allergy status to sulfonamides; Z88.5 Allergy status to narcotic agent; Z88.8 Allergy status to other drugs, medicaments and biological substances; Z91.040 Latex allergy status; Z95.828 Presence of other vascular implants and grafts; Z98.1 Arthrodesis status; R68.0 Hypothermia, not associated with low environmental temperature; W06.XXXA Fall from bed, initial encounter; Y92.013 Bedroom of single-family (private) house as the place of occurrence of the external cause; Y93.89 Activity, other specified; Y99.8 Other external cause status

== ENCOUNTER → 2024-03-06 | Outpatient (CLI) | payer MEDICARE, MEDICAID ==
[~2024-03-06] MED LIST changes: +ASPI-655 PO; +OXYB15TA14 PO; +SILD25TA2 PO
== END ==
LOC: M SOG 08:24
PROVIDERS: ATTEND Orthopaedic Surgery
DX: S72.045A Nondisplaced fracture of base of neck of left femur, initial encounter for closed fracture (principal); X58.XXXA Exposure to other specified factors, initial encounter; Y92.89 Other specified places as the place of occurrence of the external cause; Y93.89 Activity, other specified; Y99.9 Unspecified external cause status

== ENCOUNTER → 2024-03-11 | Outpatient (CLI) | payer MEDICARE, MEDICAID | LOC: M SOG 11:03 | PROVIDERS: ATTEND Orthopaedic Surgery | DX: M25.552 Pain in left hip (principal) ==

== ENCOUNTER → 2024-03-12 | Outpatient (CLI) | payer MEDICARE, MEDICAID | LOC: M WHC 12:38 | PROVIDERS: ATTEND Orthopaedic Surgery | DX: M79.605 Pain in left leg (principal); M79.604 Pain in right leg ==

== ENCOUNTER → 2025-06-22 | Outpatient (CLI) | payer MEDICARE, MEDICAID ==
[~2025-06-22] MED LIST changes: -ASPI-655 PO; +ASPI-737 PO; +GABA-1172 PO; -GABA-282 PO; -LACT10SO3 PO; +LACT10SO94 PO
== END ==
LOC: M RAD 15:25
PROVIDERS: ATTEND Internal Medicine
DX: M17.12 Unilateral primary osteoarthritis, left knee (principal); S42.022A Displaced fracture of shaft of left clavicle, initial encounter for closed fracture; M16.12 Unilateral primary osteoarthritis, left hip; M50.30 Other cervical disc degeneration, unspecified cervical region; X58.XXXA Exposure to other specified factors, initial encounter; Y92.9 Unspecified place or not applicable; Y93.9 Activity, unspecified; Y99.9 Unspecified external cause status

== ENCOUNTER → 2025-06-23 | Outpatient (CLI) | payer MEDICARE, MEDICAID | LOC: M SOG 09:26 | PROVIDERS: ATTEND Orthopaedic Surgery | DX: M25.512 Pain in left shoulder (principal); Z53.9 Procedure and treatment not carried out, unspecified reason ==

== ENCOUNTER → 2025-08-11 | Outpatient (REF) | payer MEDICARE, MEDICAID | LOC: M LAB REF 12:42 | PROVIDERS: ATTEND Internal Medicine | DX: R94.6 Abnormal results of thyroid function studies (principal) ==